=== PATIENT | male | born 1990 | race African-American/Black ===

== ENCOUNTER 2017-01-19 22:12 | Emergency (ER) | payer OTHER ==
[~2017-01-19] VITALS: Ht 193 cm; Wt 93.0 kg
[2017-01-19] MEDS ORDERED: ALPHA LIPOIC A200 M1 PO (22:18)
[2017-01-19] MEDS ORDERED: REMERON15 M1 PO (22:18)
== END 2017-01-19 23:33 | disposition home or self-care (01) ==
LOC: ED 22:12
DX: S00.83XA Contusion of other part of head, initial encounter (principal); H11.32 Conjunctival hemorrhage, left eye; F41.9 Anxiety disorder, unspecified; Z87.891 Personal history of nicotine dependence; Z79.899 Other long term (current) drug therapy; Y04.2XXA Assault by strike against or bumped into by another person, initial encounter
CPT/HCPCS: 70486; 99284